=== PATIENT | female | born 1945 | race Asian ===

== ENCOUNTER 2019-02-15 06:45 | Inpatient (IN) | payer MEDICARE, BC ==
[~2019-02-15] VITALS: Ht 160 cm; Wt 69.1 kg
[2019-02-15 06:50] VITALS: BP 161/98
--- NOTE | 2019-02-15 06:50 | NUR ---
ED Nurse Note: SANDRINE GARCIA RA 30 FROM HOME C/O MECHANICAL SLIP AND FALL X [id number]. PT STATES SHE WAS RUNNING UP THE STAIRS AND FELL. PT DENIES LOC, DENIES HEAD TRAUMA. PAIN PERSISTS ON LEFT LOWER BACK. BILATERAL LOWER EXTREMITIES MOBILE
--- NOTE | 2019-02-15 06:56 | Emergency Room Report ---
History of Present Illness General Chief Complaint: Multiple Trauma/Fall Source: Patient Present Illness HPI Disclaimer: Please note that this report is being documented using DRAGON technology. This can lead to erroneous entry secondary to incorrect interpretation by the dictating instrument. HPI: This is 73-year-old female with no reported medical history presenting for evaluation of low back pain after a fall. She was rushing up the stairs and slipped on the last top stair falling forward and onto her left side. She is complaining of pain in the lower back and states she was unable to rise to her feet due to the back pain. She denies lower extremity weakness, numbness or tingling. Denies head injury, chest pain, shortness of breath. Her pain is localized around the left lower back in the lower midline. Denies prior history of trauma. Denied any preceding lightheadedness, chest pain, shortness of breath and states she fell because she was rushing. PMH: Denies PSH: Denies Allergies: Aspirin Social Hx: Denies drug, tobacco or alcohol use Allergies: Coded Allergies: ASPIRIN (Unverified Allergy, Unknown, 01/15/15) Nursing Documentation-PMH Past Medical History: No History, Except For Hx Cardiac Problems: Yes - Joshua PE Review of Systems All Other Systems: negative except mentioned in HPI Physical Exam Vital Signs Date Time Temp Pulse Resp B/P (MAP) Pulse Ox O2 Delivery O2 Flow Rate FiO2 02/15/19 06:46 97.9 98 15 156/80 (105) 96 Room Air General: Awake and alert, appears uncomfortable HEENT: Normocephalic, atraumatic. There are no scalp or face hematomas, lacerations or abrasions. No tenderness or soft tissue swelling over the facial bones. EOMI. PERRLA. No septal hematoma. Dentition is intact. No malocclusion Neck: Supple, trachea midline. Arrives without cervical collar Chest Wall: No tenderness, no deformity, no crepitus CV: RRR. S1 and S2 normal. No murmur appreciated Resp: Normal work of breathing. No cough, wheezing or crackles appreciated Abd: Soft, nontender, nondistended. Obese abdomen. No bruising Skin: Intact. No abrasions, laceration or rash over the exposed skin MSK: Normal tone and bulk. No obvious deformity. Moving all extremities. Able to straight leg raise bilaterally Neuro: Awake and alert. Mentating appropriately. Sensation is intact to light touch over the dermatomes of the upper and lower extremities Spine: There is no tenderness, step-off or deformity in the cervical, thoracic spine. There is midline lumbar tenderness and left-sided paraspinal tenderness without step-off or deformity. Medical Decision Making Diagnostic Impression: Primary Impression: Compression fracture of L3 vertebra Additional Impression: Hypomagnesemia ER Course 73-year-old female presents for evaluation of lower back pain after a mechanical fall. Will obtain a CT scan of the lumbar spine to rule out fracture and provide pain medication. Do not believe labs are indicated at this time. Laboratory Tests Test 02/15/19 07:32 White Blood Count 5.7 K/UL (4.8-10.8) Red Blood Count 4.41 M/UL (4.20-5.40) Hemoglobin 15.0 G/DL (12.0-16.0) Hematocrit 43.9 % (37.0-47.0) Mean Corpuscular Volume 100 FL (80-99) H Mean Corpuscular Hemoglobin 34.1 PG (27.0-31.0) H Mean Corpuscular Hemoglobin Concent 34.2 G/DL (32.0-36.0) Red Cell Distribution Width 11.2 % (11.6-14.8) L Platelet Count 175 K/UL (150-450) Mean Platelet Volume 8.4 FL (6.5-10.1) Neutrophils (%) (Auto) 67.9 % (45.0-75.0) Lymphocytes (%) (Auto) 25.7 % (20.0-45.0) Monocytes (%) (Auto) 4.6 % (1.0-10.0) Eosinophils (%) (Auto) 0.9 % (0.0-3.0) Basophils (%) (Auto) 1.0 % (0.0-2.0) Sodium Level 145 MMOL/L (136-145) Potassium Level 3.9 MMOL/L (3.5-5.1) Chloride Level 108 MMOL/L (98-107) H Carbon Dioxide Level 27 MMOL/L (21-32) Anion Gap 10 mmol/L (5-15) Blood Urea Nitrogen 17 mg/dL (7-18) Creatinine 0.8 MG/DL (0.55-1.30) Estimate Glomerular Filtration Rate mL/min (>60) Glucose Level 140 MG/DL (74-106) H Calcium Level 8.9 MG/DL (8.5-10.1) Phosphorus Level 2.5 MG/DL (2.5-4.9) Magnesium Level 1.5 MG/DL (1.8-2.4) L Total Bilirubin 0.8 MG/DL (0.2-1.0) Aspartate Amino Transferase (AST) 34 U/L (15-37) Alanine Aminotransferase (ALT) 63 U/L (12-78) Alkaline Phosphatase 93 U/L (46-116) Total Protein 7.1 G/DL (6.4-8.2) Albumin 3.7 G/DL (3.4-5.0) Globulin 3.4 g/dL Albumin/Globulin Ratio 1.1 (1.0-2.7) Reevaluation Time: 07:34 Last Vital Signs Date Time Temp Pulse Resp B/P (MAP) Pulse Ox O2 Delivery O2 Flow Rate FiO2 02/15/19 06:46 97.9 98 15 156/80 (105) 96 Room Air Reevaluation Impression CT shows a compression fraction at L3 without significant displacement or retropulsion. Attempted to ambulate the patient however she was complaining of unbearable pain, inability to bear weight. She lives at home with her daughter but her house has a lot of stairs and she lives in the top floor. She will be admitted for pain control and orthopedic evaluation. Disposition: ADMITTED INPATIENT Condition: Serious Scripts No Active Prescriptions or Reported Meds Scot Dillon MD Feb 15, 2019 06:56
[2019-02-15] MEDS ORDERED: Ketorolac 30mg Inj IM ONE (07:00)
--- NOTE | 2019-02-15 07:02 | NUR ---
ED Nurse Note: PT WENT TO CT
--- NOTE | 2019-02-15 07:10 | NUR ---
ED Nurse Note: Patient came back from CT in stable condition. Patient is alert awake x4 breathing unlabored and even. patient states her pain is not bothering her unless she moves. RN assisted patient to get out of bed, patient reports that she is unable to at this time. Notified Dr. Dillon.
--- NOTE | 2019-02-15 07:39 | Diagnostic Imaging Report ---
Indications: Low back pain after a fall Technique: Spiral acquisitions obtained through the lumbar spine. Multiplanar reconstructions were generated. No IV contrast utilized. Total dose length product 565.24 mGycm. CTDIvol(s) 15.9 mGy. Dose reduction achieved using automated exposure control Comparison: Findings: There is slight (under 20%) loss of height of the L3 vertebral body both anteriorly and posteriorly and primarily involving the inferior aspect of the vertebral body.. An acute fracture line is seen running through the anterior corner. There is slight posterior retropulsion. The remaining vertebral body heights are preserved. No other acute fractures. The bony alignment is normal. The upper sacrum is intact. The posterior retropulsion of the L3 fracture may result in slight compromise of the left lateral recess, although this is doubtful. Elsewhere, no significant disc bulge or protrusion, spinal stenosis, or neural foraminal narrowing. Nonspecific calcifications are seen within the pelvis. The included extra spinal soft tissues are otherwise unremarkable. Impression: Somewhat unusual compression fracture of L3, involving the inferior vertebral body. Presence of visible fracture line suggests acuity. There is mild retropulsion. Consider MRI for better characterization. No other acute abnormality demonstrated This agrees with the preliminary interpretation provided overnight by [facility] service. The CT scanner at [facility] is accredited by the [employer] and the scans are performed using protocols designed to limit radiation exposure to as low as reasonably achievable to attain images of sufficient resolution adequate for diagnostic evaluation.
[2019-02-15] MEDS ORDERED: Morphine Sulfate 2mg/ml Inj(IV/IM USE ONLY) IVP ONE (07:45)
[2019-02-15 07:59] LABS: EOSINOPHILS % (AUTO) 0.9 % (0.0-3.0); HEMATOCRIT 43.9 % (37.0-47.0); LYMPHOCYTES % (AUTO) 25.7 % (20.0-45.0); MEAN CORPUSCULAR VOLUME 100 FL (80-99); MONOCYTES % (AUTO) 4.6 % (1.0-10.0); NEUTROPHILS % (AUTO) 67.9 % (45.0-75.0); PLATELET COUNT 175 K/UL (150-450); RED BLOOD COUNT 4.41 M/UL (4.20-5.40); RED CELL DISTRIBUTION WIDTH 11.2 % (11.6-14.8); WHITE BLOOD COUNT 5.7 K/UL (4.8-10.8)
[2019-02-15 08:04] LABS: ANION GAP 10 mmol/L (5-15); BLOOD UREA NITROGEN 17 mg/dL (7-18); CALCIUM 8.9 MG/DL (8.5-10.1); CARBON DIOXIDE 27 MMOL/L (21-32); CHLORIDE 108 MMOL/L (98-107); CREATININE 0.8 MG/DL (0.55-1.30); POTASSIUM 3.9 MMOL/L (3.5-5.1); SODIUM 145 MMOL/L (136-145)
[2019-02-15 08:08] LABS: ALANINE AMINOTRANSFERASE 63 U/L (12-78); ALBUMIN 3.7 G/DL (3.4-5.0); ALBUMIN/GLOBULIN RATIO 1.1 (1.0-2.7); ALKALINE PHOSPHATASE 93 U/L (46-116); ASPARTATE AMINO TRANSFERASE 34 U/L (15-37); BILIRUBIN,TOTAL 0.8 MG/DL (0.2-1.0); PHOSPHORUS 2.5 MG/DL (2.5-4.9)
--- NOTE | 2019-02-15 08:19 | NUR ---
ED Nurse Note: Daughter at bedside, daughter to take all of patien'ts belongings except her glasses.
--- NOTE | 2019-02-15 10:19 | NUR ---
ED Nurse Note: called 4E, unable to give report at this time. will call back.
--- NOTE | 2019-02-15 10:31 | NUR ---
ED Nurse Note: Report given to Kate TAVERAS, endorsed all plan of care to Kate TAVERAS. patient is transferred to with all of her belongings in stable condition. daughter is taking her bag, only leaving her glasses and clothing.
--- NOTE | 2019-02-15 10:45 | NUR ---
NURSE NOTES: Patient received into room 416 bed -1, from ER by transported by katiuska,patient is alert and oriented,respirations unlabored.IV magnesium infusing ,started in ER,will monitor.. patient able to move bilateral lower extremities,no complaint of numbness or tingling to bilateral legs or feet.No complaint of pain at this time.Patient daughter at bedside has patient Purse.No cellphone noted,patient state cell phone at home.patient has glasses at bedside.Bed alarm implemented for safety ,call light within reach.
[2019-02-15] MEDS ORDERED: Milk of Magnesia 30ml Ud ORAL PRN (11:30)
[2019-02-15 12:00] VITALS: BP 128/79
[2019-02-15] MEDS: Docusate 100mg cap ORAL SCH ×2 (13:16→18:35)
[2019-02-15] MEDS: Heparin 5000 units/ml inj SUBQ SCH ×2 (13:17→21:23)
[2019-02-15] MEDS: Morphine Sulfate 2mg/ml Inj(IV/IM USE ONLY) IVP PRN ×2 (14:17→21:24)
--- NOTE | 2019-02-15 16:00 | History and Physical Report ---
DATE OF ADMISSION: 02/15/2019 CHIEF COMPLAINT: Fall, possible syncopal episode. HISTORY OF PRESENT ILLNESS: The patient is a pleasant 73-year-old female. She has a prior history of pulmonary embolism diagnosed in 2014. She completed all of her treatment for that. She apparently was in her home when she felt dizzy and then fell. She does not believe that she had a syncopal episode, but she landed on her back and had severe pain. She was unable to stand or get up and was brought by family to the emergency room. On evaluation there, a CAT scan showed a L3 compression fracture. Because of intractable pain and inability to ambulate, the patient is now admitted for further evaluation and care. PAST MEDICAL HISTORY: As above. PAST SURGICAL HISTORY: None. CURRENT MEDICATIONS: Reconciled and reviewed. ALLERGIES: None. FAMILY HISTORY: None. SOCIAL HISTORY: Negative for tobacco, ethanol, or drugs. REVIEW OF SYSTEMS: GENERAL: No fever or chills. HEENT: No headaches or visual changes. CARDIOPULMONARY: No chest pain or shortness of breath. GASTROINTESTINAL: No nausea or vomiting. GENITOURINARY: No urgency or frequency. MUSCULOSKELETAL: Positive lower back pain. NEUROLOGIC: No evidence of seizures. PHYSICAL EXAMINATION: VITAL SIGNS: Temperature 98 degrees, pulse 75, respirations 22, and blood pressure 161/98. GENERAL: The patient is well developed, in no apparent distress. Alert and oriented x4. NECK: Supple. HEART: Regular rate and rhythm. LUNGS: Clear. ABDOMEN: Soft, nontender, and nondistended. EXTREMITIES: Without clubbing, cyanosis. NEUROLOGIC: Motor strength is 5/5 bilaterally. Sensation intact bilaterally. Reflexes 2+. LABORATORY DATA: White count 6, hemoglobin 15, and platelets 175,000. CMP was unremarkable. Magnesium level is 1.5. CT shows a L3 compression fracture. ASSESSMENT: This is a pleasant female. She has a prior history of pulmonary embolism, admitted with mechanical fall versus a possible syncopal episode and now she has a L3 compression fracture with severe intractable pain. PLAN: 1. MRI of the spine. 2. IV pain medications as needed. 3. We will consider spine evaluation based on MRI results. 4. PT, OT evaluations. 5. The patient has been started on DVT prophylaxis. 6. Cardiology evaluation will be obtained to rule out a cardiac etiology for the patient's near syncopal episode. 7. The patient's magnesium will be replaced. Myron Vieira M.D. DR: IVY JOB#: [id number] CC:
--- NOTE | 2019-02-15 16:39 | Diagnostic Imaging Report ---
Indication: Low back pain status post fall Technique: Sagittal T1 and T2 fast spin echo, sagittal STIR, axial T1 and T2 fast spin-echo images of the lumbar spine Comparison: Reference made to CT scan earlier the same day Findings: There is slight loss of height of the L3 vertebral body, less than 20%, as well as irregularity of the anterior and posterior urbina. Decreased T1 and increased STIR signal is seen throughout much of the L3 vertebral body, particularly inferiorly. There is minimal if any posterior retropulsion. The remainder of the vertebral marrow signal is normal. The remaining vertebral body heights are preserved. The disc spaces are preserved. Conus medullaris terminates at the L2 level No significant disc bulge or protrusion, spinal stenosis, or neural foraminal stenosis. The included extraspinal soft tissues are remarkable for the presence of a small cyst in the right kidney Impression: Inferior compression fracture of the L3 vertebral body, also described on recent CT scan. Presence of marrow edema indicates that this is acute or subacute. No other acute or significant abnormality demonstrated Incidental finding right renal cyst
--- NOTE | 2019-02-15 18:00 | NUR ---
NURSE NOTES: Using bed whitman,voiding without difficulty.Skin care given.call light within reach.
--- NOTE | 2019-02-15 19:40 | NUR ---
HAND-OFF: Report given to Brissa TAVERAS.
[2019-02-15 20:00] VITALS: BP 128/79
--- NOTE | 2019-02-15 20:45 | NUR ---
NURSE NOTES: RECIEVED PT. IN BED ALERT AND ORIENTED W/ FAMILY @ BEDSIDE VISITING,AFEBRILE V/S STABLE C/O PAIN ON HER BACK REPOSITIONED FOR COMFORT.WILL CONTINUE W/ PLAN OF CARE.
[2019-02-16] VITALS: BP 120/93
--- NOTE | 2019-02-16 03:00 | Consultation ---
DATE OF CONSULTATION: 02/15/2019 CARDIOLOGY CONSULTATION CONSULTING PHYSICIAN: Ivan Porter M.D. REQUESTING PHYSICIAN: Myron Vieira M.D. REASON FOR CONSULTATION: Near syncope with fall. HISTORY OF PRESENT ILLNESS: This is a 73-year-old female. She felt dizzy, lightheaded, and fell today. She does not think she passed out but could not be sure. She landed on her back and had severe pain at that time and was unable to get up. She was brought into the hospital by family members and seen in the emergency room. She remains with severe intractable pain and inability to ambulate. Imaging studies in the emergency room confirmed an L3 compression fracture. I have been asked to assist with cardiovascular evaluation. PAST MEDICAL HISTORY: History of pulmonary embolism. ALLERGIES: None. MEDICATIONS: Reviewed and reconciled. FAMILY HISTORY: Noncontributory. SOCIAL HISTORY: Negative for smoking, alcohol, or substance abuse. REVIEW OF SYSTEMS: She has no fevers or chills. No recent upper respiratory infection. No nausea, vomiting, or abdominal pain. No headache or loss of vision. No history of myocardial infarction. No diabetes or thyroid disorder. She is not presently on anticoagulants. PHYSICAL EXAMINATION: VITAL SIGNS: Blood pressure 155/80, pulse 98, respiratory rate 15, afebrile. GENERAL: Moderately obese. HEENT: Conjunctivae are pink. Oropharynx clear. No hematomas. No lacerations. NECK: Supple. Jugular venous pressure normal. LUNGS: Clear. CARDIAC: Regular rhythm and rate. Normal S1 and S2 with no murmur. ABDOMEN: Soft and nontender. EXTREMITIES: No clubbing, cyanosis, no edema. NEUROLOGIC: There is paraspinal tenderness in the lumbar region left greater than right. Strength is symmetric in the lower extremities. There are no abnormal reflexes noted. LABORATORY AND DIAGNOSTIC DATA: White count 5.7, hemoglobin 15. Potassium 3.9. Sodium 145, bicarb 27, BUN 17, creatinine 0.8. Magnesium 1.5. Albumin 3.7. CT scan revealed an L3 compression fracture. IMPRESSION: 1. Possible syncopal episode. 2. Acute compression fracture due to fall . 3. Hypomagnesemia. PLAN: 1. Hydration. 2. IV magnesium replacement. 3. Pain control. 4. Further imaging of the spine per primary care physician. 5. EKG and echocardiogram to assess for structural heart disease. 6. Further cardiac workup will depend on clinical parameter and above studies. 7. Orthostatic blood pressure monitoring will be obtained as well. Ivan Porter M.D. DR: Fatemeh JOB#: [id number] CC:
[2019-02-16 04:00] VITALS: BP 126/92
[2019-02-16 06:55] LABS: BASOPHILS % (AUTO) 0.9 % (0.0-2.0); EOSINOPHILS % (AUTO) 0.7 % (0.0-3.0); HEMATOCRIT 44.8 % (37.0-47.0); HEMOGLOBIN 15.1 G/DL (12.0-16.0); LYMPHOCYTES % (AUTO) 27.4 % (20.0-45.0); MEAN CORPUSCULAR VOLUME 101 FL (80-99); MONOCYTES % (AUTO) 5.4 % (1.0-10.0); NEUTROPHILS % (AUTO) 65.6 % (45.0-75.0); PLATELET COUNT 159 K/UL (150-450); RED BLOOD COUNT 4.45 M/UL (4.20-5.40); RED CELL DISTRIBUTION WIDTH 11.3 % (11.6-14.8); WHITE BLOOD COUNT 5.2 K/UL (4.8-10.8)
[2019-02-16 07:14] LABS: ALANINE AMINOTRANSFERASE 46 U/L (12-78); ALBUMIN 3.5 G/DL (3.4-5.0); ALBUMIN/GLOBULIN RATIO 1.1 (1.0-2.7); ALKALINE PHOSPHATASE 83 U/L (46-116); ANION GAP 10 mmol/L (5-15); ASPARTATE AMINO TRANSFERASE 25 U/L (15-37); BLOOD UREA NITROGEN 11 mg/dL (7-18); CALCIUM 8.7 MG/DL (8.5-10.1); CARBON DIOXIDE 25 MMOL/L (21-32); CHLORIDE 110 MMOL/L (98-107); CREATININE 0.7 MG/DL (0.55-1.30); POTASSIUM 3.8 MMOL/L (3.5-5.1); SODIUM 145 MMOL/L (136-145)
[2019-02-16 07:15] LABS: BILIRUBIN,DIRECT 0.2 MG/DL (0.0-0.3)
--- NOTE | 2019-02-16 07:21 | NUR ---
HAND-OFF: Report given to BRENDA TAVERAS.
--- NOTE | 2019-02-16 07:50 | NUR ---
NURSE NOTES: Patient alert and oriented,respirations unlabored.patient eating breakfast,complaint of pain will mrdicate as ordered.bed alarm is on ,call light within reach.
[2019-02-16 08:00] VITALS: BP 140/74
[2019-02-16] MEDS: Docusate 100mg cap ORAL SCH ×2 (08:21→19:07)
[2019-02-16] MEDS: Heparin 5000 units/ml inj SUBQ SCH ×2 (08:31→21:24)
[2019-02-16] MEDS: HYDROcodone/Acetamin 10/325 tab ORAL PRN ×3 (08:36→21:25)
--- NOTE | 2019-02-16 09:03 | General Progress Note ---
Assessment/Plan Problem List: (1) Chest pain ICD Codes: R07.9 - Chest pain, unspecified SNOMED: 72912716 (2) Hypomagnesemia ICD Codes: E83.42 - Hypomagnesemia SNOMED: 447686672 (3) Compression fracture of L3 vertebra ICD Codes: S32.030A - Wedge compression fracture of third lumbar vertebra, initial encounter for closed fracture SNOMED: 620009300 Status: stable Assessment/Plan: spine eval pending pain rx pt/ot Subjective ROS Limited/Unobtainable: No Constitutional: Reports: malaise, weakness HEENT: Reports: no symptoms Cardiovascular: Reports: no symptoms Respiratory: Reports: no symptoms Gastrointestinal/Abdominal: Reports: no symptoms Genitourinary: Reports: no symptoms Neurologic/Psychiatric: Reports: no symptoms Endocrine: Reports: no symptoms Hematologic/Lymphatic: Reports: no symptoms Allergies: Coded Allergies: ASPIRIN (Unverified Allergy, Unknown, 01/15/15) All Systems: reviewed and negative except above Subjective still with pain. last took iv morphine last night. no focal weakness or numbness. MRI noted Objective Last 24 Hour Vital Signs Date Time Temp Pulse Resp B/P (MAP) Pulse Ox O2 Delivery O2 Flow Rate FiO2 02/16/19 04:00 98.1 71 18 126/92 (103) 96 02/16/19 00:00 98.0 74 19 120/93 (102) 95 02/15/19 21:54 98.2 02/15/19 21:00 Room Air 02/15/19 20:00 99.6 72 20 128/79 (95) 92 02/15/19 12:00 98.2 73 19 128/79 (95) 94 02/15/19 11:38 Room Air 02/15/19 10:30 97.9 75 22 161/98 98 Room Air Intake and Output 02/15/19 02/16/19 19:00 07:00 Output Total 350 ml Balance -350 ml Output Urine Total 350 ml # Voids 2 2 Laboratory Tests 02/16/19 05:10: White Blood Count 5.2, Red Blood Count 4.45, Hemoglobin 15.1, Hematocrit 44.8, Mean Corpuscular Volume 101H, Mean Corpuscular Hemoglobin 33.9H, Mean Corpuscular Hemoglobin Concent 33.7, Red Cell Distribution Width 11.3L, Platelet Count 159, Mean Platelet Volume 7.4, Neutrophils (%) (Auto) 65.6, Lymphocytes (%) (Auto) 27.4, Monocytes (%) (Auto) 5.4, Eosinophils (%) (Auto) 0.7, Basophils (%) (Auto) 0.9, Sodium Level 145, Potassium Level 3.8, Chloride Level 110H, Carbon Dioxide Level 25, Anion Gap 10, Blood Urea Nitrogen 11, Creatinine 0.7, Estimat Glomerular Filtration Rate , Glucose Level 104, Calcium Level 8.7, Magnesium Level 1.9, Total Bilirubin 2.0H, Direct Bilirubin 0.2, Aspartate Amino Transf (AST/SGOT) 25, Alanine Aminotransferase (ALT/SGPT) 46, Alkaline Phosphatase 83, Troponin I 0.002, Total Protein 6.7, Albumin 3.5, Globulin 3.2, Albumin/Globulin Ratio 1.1 Height (Feet): 5 Height (Inches): 3.00 Weight (Pounds): 153 General Appearance: WD/WN, alert Neck: supple Cardiovascular: regular rhythm Respiratory/Chest: lungs clear Abdomen: normal bowel sounds, non tender, soft, no organomegaly Edema: no edema noted Arm (L), no edema noted Arm (R), no edema noted Leg (L), no edema noted Leg (R), no edema noted Pedal (L), no edema noted Pedal (R), no edema noted Generalized Neurologic: no motor/sensory deficits Myron Vieira MD Feb 16, 2019 09:03
--- NOTE | 2019-02-16 10:14 | NUR ---
CASE MANAGEMENT:REVIEW 73 YR OLD FEMALE BIBA FROM HOME CC; RUNNING UP STAIRS AND FELL. UNABLE TO AMBULATE SI:L3 COMPRESSION FRACTURE HYPOMAGNESIUM 97.8 98 15 156/80 96% ON RA MAG-1.5 IS: IV TORADOL IV MORPHINE IV MAG SULFATE X1 CT SPINE : TO MED/SURG 4 EAST PLAN: PT EVAL
[2019-02-16 12:00] VITALS: BP 120/72
--- NOTE | 2019-02-16 15:17 | Consultation ---
Consult Note Consult Note full note dicated. L3 3 column fx, min displaced Assessment/Plan no surgical intervention now, but needs to be closely monitored. Needs custom TLSO Alex Bush MD Feb 16, 2019 15:17
[2019-02-16 16:00] VITALS: BP 114/63
--- NOTE | 2019-02-16 18:30 | NUR ---
NURSE NOTES: Patient resting no complaint of pain at this time.Log roll as ordered,Bed alarm on,call light within reach.
--- NOTE | 2019-02-16 19:45 | Consultation ---
DATE OF CONSULTATION: 02/16/2019 CONSULTING PHYSICIAN: Joshua Alvares M.D. HISTORY OF PRESENT ILLNESS: This is the first [facility] admission for this 73-year-old right-handed Syriac [place] woman who was admitted with a L3 fracture. I was asked to see the patient to evaluate her neurologic status. Yesterday, the patient was at home. She was running up stairs and tripped and fell. There was no loss of consciousness. She may have been dizzy at that time. She fell to the left side and had an immediate severe lower back pain. The paramedics were called and brought her to [facility]. CT scan of the lumbar spine revealed a L3 compression fracture, which was followed up by an MRI scan of the lumbar spine yesterday, which revealed no significant disk bulge or protrusion, spinal stenosis, or neuroforaminal stenosis, but there was an inferior compression fracture of the L3 vertebral body with some edema. There was no anemia; however, her MCV was elevated. Platelet count was normal. White count was normal. The chemistries were normal except for some mildly elevated glucose and chloride. The urinalysis was basically normal except for +1 leukocyte esterase. There is occasional bacteria noted. PT and PTT were normal. The patient had a 2D echocardiogram today, which was mildly abnormal. An EKG revealed left axis deviation, septal infarct, age indeterminate. There was evidence of some pulmonary hypertension on the echocardiogram. The patient was seen by Dr. Vieira. She was placed on heparin 5000 units subcutaneous and given hydrocodone/acetaminophen for pain and morphine for pain. I was asked to see the patient in neurologic consultation. The patient has a mild headache. There is no seizures or blackouts. Her memory is impaired. She denies any loss of smell or taste, diplopia, blurred vision, hearing loss, tinnitus. She denied dizzy spells to me. There is no dysarthria, dysphagia, or muscle weakness in her legs. There is no numbness or tingling or loss of bowel or bladder function. There is no family history of neurologic disease. PAST MEDICAL HISTORY/PAST MEDICAL ILLNESSES: Pulmonary embolism in 2015. The patient has sinusitis. HABITS: She does not drink, smoke, or take illicit drugs. SOCIAL HISTORY: She is , has 2 children, in good health. REVIEW OF SYSTEMS: Negative. There is no chest pain, palpitations, or shortness of breath with her episode. PHYSICAL EXAMINATION: GENERAL: She is a well developed, overweight to obese woman, lying in bed, in some distress because of back pain. VITAL SIGNS: Blood pressure is 120/72, respiratory rate 16, temperature is 99 degrees. HEENT: Intact except for poor dentition. NECK: There is no tenderness of her neck and her neck is supple. Carotids are +2. No bruits. LUNGS: Clear to auscultation. CARDIOVASCULAR: PMI is not felt. JVP was normal. The patient had a normal S1. S2 is physiologically split. There is no S3, S4, murmurs, or rubs. ABDOMEN: Obese. Bowel sounds intact and it is normal. No organomegaly or tenderness. BACK: Could not be tested. EXTREMITIES: Normal. NEUROLOGIC EXAMINATION: MENTAL STATUS: She was alert and awake. Judgment could not be tested. Affect is appropriate to her mood. Memory, past memory is intact to her date of and mother's maiden name. Immediate recall is 3/3 objects. Recent recall is 2/3 objects in 3 minutes. Intellect could not be tested. ORIENTATION: She knew it was 02/16/2019. Place, she knew she was in [facility]. She was oriented to person. Language functions were intact given that [place]se is her second language. She could spell world pretty much backwards and forwards. CRANIAL NERVE EXAMINATION: CRANIAL NERVE II: Visual urban were intact. CRANIAL NERVES III, IV, AND : Extraocular motility was full. Pupils were 3 mm, round, light reactive. CRANIAL NERVE V: Facial sensation was intact to fine touch. Pterygoid strength is 5/5. CRANIAL NERVE VII: Facial strength is 5/5. CRANIAL NERVE VIII: Auditory acuity is intact bilaterally. CRANIAL NERVES IX AND X: Gag is intact bilaterally. CRANIAL NERVES XI AND XII: Normal. MUSCLE EXAMINATION: Muscle bulk and tone are normal. Strength 5/5. Reflexes are +2 in the upper extremities, +2 at the knees, +1 at the ankles with downgoing toes on testing for Babinski response. COORDINATION: [id number], [id number]-jj-[id number] testing were intact. GAIT AND STATION: Could not be tested. SENSORY EXAMINATION: Pinprick, fine touch, proprioception were all intact. IMPRESSION: This patient has a L3 compression fracture without any obvious neurologic abnormality complications. Therefore, she will need to see an orthopedic surgeon. She will need pain management. PLAN: 1. I will speak to you about this case. 2. Orthopedic surgeon consultation. Thank you for this interesting case, Dr. Porter. Joshua MD Giorgio DR: NEGRA JOB#: [id number] CC: MUSA
[2019-02-16 20:00] VITALS: BP 132/75
--- NOTE | 2019-02-16 20:00 | NUR ---
NURSE NOTES: RECEIVED PATIENT LYING IN BED, AWAKE, ALERT/ORIENTED X4, VERBALLY RESPONSIVE, DENIES PAIN. NO SIGNS AND SYMPTOMS OF ACUTE CARDIO RESPIRATORY DISTRESS/SHORTNESS OF BREATH. L3 COMPRESSION FRACTURE, NO PENDING SURGERY/SCHEDULED FOR BRACE FITTING(MILLIE STAPLES) - PT HELD UNTIL AFTER FITTED WITH BRACE/STRICT BEDREST/LOG ROLL PROTOCOL, PATIENT AWARE. SIDE RAILS UP X3/BED IN LOWEST POSITION FOR SAFETY, ENCOURAGED PATIENT TO UTILIZE CALL LIGHT FOR ASSISTANCE. NAD.
--- NOTE | 2019-02-16 20:52 | NUR ---
HAND-OFF: Report given to Gina GARCIA.
--- NOTE | 2019-02-16 23:30 | Consultation ---
DATE OF CONSULTATION: 02/16/2019 SPINE SURGICAL CONSULTATION CONSULTING PHYSICIAN: Alex Chapman M.D. REFERRING PHYSICIAN: Ivan Porter M.D. REASON FOR CONSULTATION: Spinal fracture. HISTORY OF PRESENT ILLNESS: The patient is a 73-year-old woman who states that she was running up the stairs, and at the top of the landing, she fell. She did not fall down the stairs, but rather fell at the top of the landing. She is not sure if she fell straight forward while inside. Due to severe pain, she was brought into the hospital yesterday, and an MRI was obtained as well as the CT scan. An L3 compression fracture was identified and spine surgical consultation was recommended. The patient denies any numbness, tingling, or pain in the legs although she did have temporary numbness in her feet, which has since resolved. Due to severe pain, she is unable to stand or walk. The history was obtained through the patient's daughter. PAST MEDICAL HISTORY: Significant for pulmonary embolism. MEDICATIONS: Reviewed the reconciliation report. ALLERGIES: None. PHYSICAL EXAMINATION: The patient is an elderly woman, lying in a hospital bed, unable to mobilize her or log roll her due to pain. The back skin was not examined. Lower extremities were examined. She had full sensation throughout all dermatomes. Motor strength was intact and nonfocal as it relates to bilateral quadriceps, EHL, and gastroc soleus. Iliopsoas was difficult to assess due to pain. Gait was not assessed. Reflexes symmetric and nonfocal. DIAGNOSTIC STUDIES: CT scan was evaluated. There is an L3 fracture, involving both the anterior and middle columns. There appeared to also be a nondisplaced bilateral pedicle fracture, which is very poorly visualized, but appears to indeed be present. An MRI of the lumbar spine confirmed similar findings. DIAGNOSES: 1. Spinal fracture, unstable involving anterior and middle columns and possibly nondisplaced pedicle fractures. 2. History of pulmonary embolus. PLAN: At this point, I have had a detailed discussion with the patient's family with the patient as well with Dr. Vieira. This is an acute and unstable fracture. She should hold off on physical therapy and be log-rolled with spinal precautions. She needs to be fitted with a custom rigid TLSO brace. Strong consideration for rehab. She will need to be evaluated within two weeks for x-rays to assess further stability. Kyphoplasty is not indicated due to the fracture pattern. I did discuss alternatively operating at this time; however, based on her advanced age and comorbidity of prior pulmonary embolus, I would not recommend surgical intervention. I would recommend use of Miacalcin. I have also discussed with Dr. Vieira, consultation with Hematology to better understand why she had a DVT in the past and the risk of pulmonary embolus. Due to the protracted limited activity, consideration for anticoagulant versus IVC filter should be made. I will defer this to Hematology/Vascular. I will monitor the patient during the hospital stay. I do appreciate the opportunity to see and evaluate this patient. Alex Joe Chapman DR: GAMALIEL JOB#: [id number] CC: MUSA
--- NOTE | 2019-02-16 23:45 | Progress Note ---
DATE: 02/16/2019 CARDIOLOGY PROGRESS NOTE SUBJECTIVE: Pain is improved. MRI noted. Neurologic evaluation appreciated. OBJECTIVE: VITAL SIGNS: Blood pressure trend 126/92, pulse 71, respiratory rate 18, and afebrile. LUNGS: Clear. CARDIAC: Regular. Normal S1, S2. ABDOMEN: Soft. EXTREMITIES: No edema. IMPRESSION: 1. Non-syncopal fall. 2. Compression fracture of the third lumbar vertebra. 3. Hypomagnesemia. 4. Hx pulmonary embolism PLAN: 1. Monitor and replace electrolytes as needed including magnesium. 2. DVT prophylaxis. 3. Check orthostatics as mobilization ensues. 4. Fall precautions. 5. Check venous duplex; reassess for full anticoagulation. Ivan Porter M.D. DR: BRET JOB#: [id number] CC: MUSA
[2019-02-17] VITALS: BP 121/67
[2019-02-17 04:00] VITALS: BP 98/72
[2019-02-17] MEDS: HYDROcodone/Acetamin 10/325 tab ORAL PRN ×5 (05:42→20:48)
--- NOTE | 2019-02-17 06:51 | NUR ---
NURSE NOTES: RESTED WELL, NO SIGNIFICANT CHANGE OF CONDITION NOTED THROUGHOUT THE NIGHT. SAFETY MAINTAINED. NAD.
[2019-02-17 07:53] VITALS: BP 129/72
[2019-02-17] MEDS: Docusate 100mg cap ORAL SCH ×2 (08:15→17:02)
[2019-02-17] MEDS: Heparin 5000 units/ml inj SUBQ SCH ×2 (08:16→20:48)
--- NOTE | 2019-02-17 08:32 | NUR ---
DISCHARGE PLANNING BACK BRACE ORDER FAXED TO [facility] T: [phone] F: [phone] CALLED [facility] AND SPOKE WITH ED. PER ED HE HAS TO CONFIRM FINANCIAL RESPONSIBILITY WITH [facility]ENDO[facility]. ONCE FINANCIAL RESPONSIBILITY HAS BEEN CONFIRMED BRACE WILL BE DELIVERED NURSING TO FOLLOW UP WITH [facility] REGARDING DELIVERY TIME
--- NOTE | 2019-02-17 08:44 | NUR ---
NURSE NOTES: pt awake alert, oriented, no sob. no c/o pain. call light within reach. bed in lowest position, locked.
--- NOTE | 2019-02-17 08:50 | NUR ---
NURSE NOTES: received order from dr Briseno during his rounds venous duplex to r/o dvt , if dvt pt will need ivc filter per md, if no dvt, oral medication for dvt ppx is recommended.per md mae and rashawn brace has been notified for brace placement. and pt needs to have brace when out of bed
--- NOTE | 2019-02-17 08:58 | Orthopedic Spine Progress Note ---
Ortho Spine - Progress Note Subjective Symptoms: other - continues with back pain-- no leg symptoms Objective Vital Signs: Last 24 Hour Vital Signs Date Time Temp Pulse Resp B/P (MAP) Pulse Ox O2 Delivery O2 Flow Rate FiO2 02/17/19 07:53 97.9 71 18 129/72 (91) 94 02/17/19 06:12 97.9 02/17/19 04:00 97.9 71 18 98/72 (81) 94 02/17/19 00:00 98.1 74 18 121/67 (85) 94 02/16/19 21:00 Room Air 02/16/19 20:00 99.4 78 18 132/75 (94) 93 02/16/19 16:00 99.8 68 19 114/63 (80) 93 02/16/19 12:00 99.0 72 16 120/72 (88) 93 02/16/19 09:00 Room Air I&O: Intake and Output 02/16/19 02/17/19 18:59 06:59 Intake Total 450 ml 240 ml Balance 450 ml 240 ml Intake Oral 450 ml 240 ml # Voids 2 2 Neuro Status: normal Additional Comments: calf soft Assessment Post-op Diagnosis: L3 unstable fx Plan Plan: PT - start pt after brace, discharge plan - will need rehab placement Additional Comments: in light of prior dvt/pt, obtain baseline duplex today. If Duplex +, then will need IVC filter May start miacalcin if ok with primary team. Continue spine precautions until rigid TLSO brace is delivered Alex Chapman MD Feb 17, 2019 08:58
--- NOTE | 2019-02-17 09:22 | NUR ---
NURSE NOTES: rn called md office and spoke segun Jensen family wants dc dispo to be [facility] and miacalcin nasal spray that recommended by spine surgeon, awaiting md call back. per rom figueroa already knows about [facility]
--- NOTE | 2019-02-17 10:10 | NUR ---
P.T Note: late 02/16/2019 1545 P.T consult received however DR. Chapman advised to hold P.T evaluation until the TLSO brace is available. P.T will follow up.
--- NOTE | 2019-02-17 11:05 | NUR ---
DISCHARGE PLANNING CUSTOM BRACE HAS BEEN ORDERED FROM [facility] AND WILL BE DELIVERED TO HOSPITAL AT SOME POINT TODAY PATIENT HAS BEEN REFERRED TO [facility] T: [phone] F: [phone] CALLED [facility] AND SPOKE WITH TOÑO. EXPLAINED WE DO NOT HAVE ANY PT NOTES YET WE ARE WAITING FOR BACK BRACE TO BE DELIVERED NURSING..ONCE BRACE HAS BEEN DELIVERED AND PT HAS SEEN PATIENT PLEASE FAX PT NOTES TO ABOVE FAX NUMBER
[2019-02-17 12:00] VITALS: BP 119/79
--- NOTE | 2019-02-17 14:50 | General Progress Note ---
Assessment/Plan Problem List: (1) Chest pain ICD Codes: R07.9 - Chest pain, unspecified SNOMED: 40981755 (2) Hypomagnesemia ICD Codes: E83.42 - Hypomagnesemia SNOMED: 955991280 (3) Compression fracture of L3 vertebra ICD Codes: S32.030A - Wedge compression fracture of third lumbar vertebra, initial encounter for closed fracture SNOMED: 920016610 Status: stable Assessment/Plan: spine eval apprecaited custom brace per spine pain rx pt/ot Subjective ROS Limited/Unobtainable: No Constitutional: Reports: weakness HEENT: Reports: no symptoms Cardiovascular: Reports: no symptoms Respiratory: Reports: no symptoms Gastrointestinal/Abdominal: Reports: no symptoms Genitourinary: Reports: no symptoms Neurologic/Psychiatric: Reports: no symptoms Endocrine: Reports: no symptoms Hematologic/Lymphatic: Reports: no symptoms Allergies: Coded Allergies: ASPIRIN (Unverified Allergy, Unknown, 01/15/15) All Systems: reviewed and negative except above Subjective +back pain. spine appreciated. unstable L spine fracture. custom clamshell brace recommended. once fitted pt can go to [facility] with biweekly follow up with Objective Last 24 Hour Vital Signs Date Time Temp Pulse Resp B/P (MAP) Pulse Ox O2 Delivery O2 Flow Rate FiO2 02/17/19 12:17 97.9 02/17/19 12:00 97.9 86 18 119/79 (92) 94 02/17/19 08:56 Room Air 02/17/19 07:53 97.9 71 18 129/72 (91) 94 02/17/19 04:00 97.9 71 18 98/72 (81) 94 02/17/19 00:00 98.1 74 18 121/67 (85) 94 02/16/19 21:00 Room Air 02/16/19 20:00 99.4 78 18 132/75 (94) 93 02/16/19 16:00 99.8 68 19 114/63 (80) 93 Intake and Output 02/16/19 02/17/19 19:00 07:00 Intake Total 450 ml 240 ml Balance 450 ml 240 ml Intake Oral 450 ml 240 ml # Voids 2 2 Height (Feet): 5 Height (Inches): 3.00 Weight (Pounds): 152 Objective General Appearance: WD/WN, alert Neck: supple Cardiovascular: regular rhythm Respiratory/Chest: lungs clear Abdomen: normal bowel sounds, non tender, soft, no organomegaly Edema: no edema noted Arm (L), no edema noted Arm (R), no edema noted Leg (L), no edema noted Leg (R), no edema noted Pedal (L), no edema noted Pedal (R), no edema noted Generalized Neurologic: no motor/sensory deficits Myron Vieira MD Feb 17, 2019 14:50
--- NOTE | 2019-02-17 15:44 | NUR ---
DISCHARGE PLANNING UPDATE VENDOR CHANGED TO [facility] BY DIRECTOR OF [facility] T: [phone] F:[phone] BRACE TO ARRIVE BY 1700 ONCE WE HAVE PT NOTES THEY NEED TO BE FAXED TO [facility] T: [phone] F: [phone] THEY ALREADY HAVE ALL OF THE OTHER CLINICALS DR COFFEY WILL NOT FOLLOW PATIENT AT [facility]
[2019-02-17] MEDS: Calcium Carbonate 500mg w/Vit D 200iu tab ORAL SCH (15:55)
[2019-02-17] MEDS: Vitamin D 1000 IU Tab ORAL SCH (15:55)
[2019-02-17 16:22] VITALS: BP 131/70
--- NOTE | 2019-02-17 18:16 | NUR ---
CHARGE NURSE NOTE: Spoke with UMER Fuentes. According to her custom made brace will be delivered on Wednesday.
--- NOTE | 2019-02-17 19:19 | NUR ---
HAND-OFF: Report given to SID TAVERAS. PT C/O CONSTIPATION, DR COFFEY MADE AWARE, RECEIVED ORDER FOR MAG CITRATE X 1, ORDERED
[2019-02-17 20:00] VITALS: BP 129/77
[2019-02-17] MEDS ORDERED: Magnesium Citrate Liq Btl ORAL SCH (20:00)
[2019-02-18] VITALS: BP 119/74
--- NOTE | 2019-02-18 00:30 | Progress Note ---
DATE: 02/17/2019 CARDIOLOGY PROGRESS NOTE SUBJECTIVE: The patient has an unstable spine fracture and a specific brace is being fitted and requested. OBJECTIVE: VITAL SIGNS: Blood pressure 119/79, heart rate 86, respiratory rate 18, and afebrile. LUNGS: Clear. CARDIAC: Regular. Normal S1, S2 with no murmur. ABDOMEN: Soft. EXTREMITIES: No edema. LABORATORY DATA: No new laboratories today. Venous duplex scan was negative for DVT. IMPRESSION: 1. Mechanical fall. 2. Hypomagnesemia, status post repletion. 3. Compression fractures. 4. Hx of pulmonary embolism 5. Pulmonary hypertension secondary to above. PLAN: 1. Follow up laboratory studies. 2. Await back brace. 3. No acute indication for full anti-coagulation; needs DVT prophylaxis. Ivan Porter M.D. DR: Stephanie JOB#: [id number] CC: MUSA
[2019-02-18] MEDS: HYDROcodone/Acetamin 10/325 tab ORAL PRN ×4 (02:38→22:14)
[2019-02-18 04:00] VITALS: BP 104/57
--- NOTE | 2019-02-18 06:51 | NUR ---
NURSE NOTES: Received report from NITIN Vu. Patient A&Ox4. On room air, no signs of distress or labored breathing. IV intact, patent,. and saline locked. at the bedside. Bed in lowest position with call light in reach Will continue with plan of care.
[2019-02-18 07:19] LABS: EOSINOPHILS % (AUTO) 1.2 % (0.0-3.0); HEMOGLOBIN 16.1 G/DL (12.0-16.0); LYMPHOCYTES % (AUTO) 21.1 % (20.0-45.0); MEAN CORPUSCULAR VOLUME 100 FL (80-99); MONOCYTES % (AUTO) 8.3 % (1.0-10.0); NEUTROPHILS % (AUTO) 68.4 % (45.0-75.0); PLATELET COUNT 162 K/UL (150-450); RED BLOOD COUNT 4.69 M/UL (4.20-5.40); RED CELL DISTRIBUTION WIDTH 11.3 % (11.6-14.8); WHITE BLOOD COUNT 5.7 K/UL (4.8-10.8)
--- NOTE | 2019-02-18 07:38 | NUR ---
HAND-OFF: Report given to Rochelle Marsh RN.
--- NOTE | 2019-02-18 07:40 | NUR ---
NURSE NOTES: Received patient in bed, awake, alert and oriented x4. Able to make her needs known.Not in respiratory/cardiac distress, having breakfast without any difficulties. Patient is on mild pain ,will call nurse when she is done eating. Call light within reach, bed is in lowest position and locked. All personnel items within reach.Will continue plan of care.
[2019-02-18 07:44] LABS: ALANINE AMINOTRANSFERASE 46 U/L (12-78); ALBUMIN 3.5 G/DL (3.4-5.0); ALBUMIN/GLOBULIN RATIO 0.9 (1.0-2.7); ALKALINE PHOSPHATASE 93 U/L (46-116); ANION GAP 7 mmol/L (5-15); ASPARTATE AMINO TRANSFERASE 28 U/L (15-37); BILIRUBIN,TOTAL 1.8 MG/DL (0.2-1.0); BLOOD UREA NITROGEN 12 mg/dL (7-18); CALCIUM 9.5 MG/DL (8.5-10.1); CARBON DIOXIDE 29 MMOL/L (21-32); CHLORIDE 107 MMOL/L (98-107); CREATININE 0.6 MG/DL (0.55-1.30); POTASSIUM 4.5 MMOL/L (3.5-5.1); SODIUM 143 MMOL/L (136-145)
[2019-02-18 07:53] LABS: BILIRUBIN,DIRECT 0.3 MG/DL (0.0-0.3)
[2019-02-18 08:00] VITALS: BP 105/60
[2019-02-18] MEDS ORDERED: Fleet's Enema 133ml RECTAL PRN (08:15)
--- NOTE | 2019-02-18 08:23 | General Progress Note ---
Assessment/Plan Problem List: (1) Chest pain ICD Codes: R07.9 - Chest pain, unspecified SNOMED: 74253263 (2) Hypomagnesemia ICD Codes: E83.42 - Hypomagnesemia SNOMED: 116902245 (3) Compression fracture of L3 vertebra ICD Codes: S32.030A - Wedge compression fracture of third lumbar vertebra, initial encounter for closed fracture SNOMED: 375129726 Status: stable Assessment/Plan: bowel regime back brace wednesday dc planning once brace arrives Subjective ROS Limited/Unobtainable: No Constitutional: Reports: malaise, weakness HEENT: Reports: no symptoms Cardiovascular: Reports: no symptoms Respiratory: Reports: no symptoms Gastrointestinal/Abdominal: Reports: constipated Genitourinary: Reports: no symptoms Neurologic/Psychiatric: Reports: no symptoms Endocrine: Reports: no symptoms Hematologic/Lymphatic: Reports: no symptoms Allergies: Coded Allergies: ASPIRIN (Unverified Allergy, Unknown, 01/15/15) All Systems: reviewed and negative except above Subjective back pain. constipated. fitted for brace but brace will not arrive till wednesday Objective Last 24 Hour Vital Signs Date Time Temp Pulse Resp B/P (MAP) Pulse Ox O2 Delivery O2 Flow Rate FiO2 02/18/19 04:00 98.6 67 20 104/57 (73) 94 02/18/19 00:00 99.1 72 20 119/74 (89) 94 02/17/19 21:00 Room Air 02/17/19 20:00 99.3 76 18 129/77 (94) 02/17/19 20:00 99.3 76 18 129/77 (94) 94 02/17/19 16:34 97.9 02/17/19 16:22 97.9 80 18 131/70 (90) 94 02/17/19 12:00 97.9 86 18 119/79 (92) 94 02/17/19 08:56 Room Air Intake and Output 02/17/19 02/18/19 18:59 06:59 Intake Total 600 ml Balance 600 ml Intake Oral 600 ml # Voids 2 3 Laboratory Tests 02/18/19 06:15: White Blood Count 5.7, Red Blood Count 4.69, Hemoglobin 16.1H, Hematocrit 47.0, Mean Corpuscular Volume 100H, Mean Corpuscular Hemoglobin 34.4H, Mean Corpuscular Hemoglobin Concent 34.3, Red Cell Distribution Width 11.3L, Platelet Count 162, Mean Platelet Volume 8.1, Neutrophils (%) (Auto) 68.4, Lymphocytes (%) (Auto) 21.1, Monocytes (%) (Auto) 8.3, Eosinophils (%) (Auto) 1.2, Basophils (%) (Auto) 1.0 02/18/19 06:55: Sodium Level 143, Potassium Level 4.5, Chloride Level 107, Carbon Dioxide Level 29, Anion Gap 7, Blood Urea Nitrogen 12, Creatinine 0.6, Estimat Glomerular Filtration Rate , Glucose Level 114H, Calcium Level 9.5, Magnesium Level 2.2, Total Bilirubin 1.8H, Direct Bilirubin 0.3, Aspartate Amino Transf (AST/SGOT) 28 , Alanine Aminotransferase (ALT/SGPT) 46, Alkaline Phosphatase 93, Total Protein 7.3, Albumin 3.5, Globulin 3.8, Albumin/Globulin Ratio 0.9L, Thyroid Stimulating Hormone (TSH) 2.700 Height (Feet): 5 Height (Inches): 3.00 Weight (Pounds): 152 Objective General Appearance: WD/WN, alert Neck: supple Cardiovascular: regular rhythm Respiratory/Chest: lungs clear Abdomen: normal bowel sounds, non tender, soft, no organomegaly Edema: no edema noted Arm (L), no edema noted Arm (R), no edema noted Leg (L), no edema noted Leg (R), no edema noted Pedal (L), no edema noted Pedal (R), no edema noted Generalized Neurologic: no motor/sensory deficits Myron Vieira MD Feb 18, 2019 08:23
[2019-02-18] MEDS: Docusate 100mg cap ORAL SCH ×2 (08:29→17:19)
[2019-02-18] MEDS: Calcium Carbonate 500mg w/Vit D 200iu tab ORAL SCH ×2 (08:29→17:19)
[2019-02-18] MEDS: Vitamin D 1000 IU Tab ORAL SCH (08:29)
[2019-02-18] MEDS ORDERED: Fleet's Enema 133ml RECTAL SCH (08:30)
[2019-02-18] MEDS: Heparin 5000 units/ml inj SUBQ SCH ×2 (08:31→21:00)
--- NOTE | 2019-02-18 09:30 | NUR ---
NURSE NOTES: Patient refused heparin SQ. RN re-educated on medications and patient fully understood but patient refused x3 stating " I will take it @ night time." Rn explained the risks and benefits. Patient denies pain on calf or SOB.Will continue to monitor.
--- NOTE | 2019-02-18 10:30 | NUR ---
NURSE NOTES: Patient had large amount of brownish bowel movement after fleet enema. Proper skin care done. Log roll done when turning the patient.
[2019-02-18 12:00] VITALS: BP 116/62
--- NOTE | 2019-02-18 13:04 | NUR ---
DISCHARGE PLANNING: NOTE CM CONFIRMED WITH GIANNA @ [facility] THAT CUSTOM BRACE WILL BE DELIVERED ON WEDNESDAY BETWEEN [phone]. PRIMARY CM WILL F/U ON WEDNESDAY
--- NOTE | 2019-02-18 13:11 | Cardiology Report ---
APPROVED REPORT EKG Measurement Heart [id number] HI [id number] Normal sinus rhythm Left axis deviation Septal infarct, age undetermined Abnormal ECG
--- NOTE | 2019-02-18 13:55 | NUR ---
PT Note Custom TLSO brace will be delivered on Wednesday. Will hold PT till brace is available.
[2019-02-18 16:00] VITALS: BP 109/63
--- NOTE | 2019-02-18 19:42 | NUR ---
NURSE NOTES: Received report from NITIN Sterling. Patient a/a/o breathing unlabored without distress, discomfort, or sob on room air. Denies pain at this time. IV noted on the right antecubital intact, dry, and patent. Patient verbalize understanding of logroll and able to demonstrate with staff assist. Bed placed at the lowest with brakes and siderails up for safety. Call light placed within reach. Will continue to monitor and provide care as ordered.
[2019-02-18 20:00] VITALS: BP 109/66
--- NOTE | 2019-02-18 21:00 | NUR ---
NURSE NOTES: Patient and patient family member refused heparin scheduled today for 2100. Patient and patient's family member are well aware of the benefit and the risk and it was went over again at the bedside Will continue to monitor and provide care as ordered. .
--- NOTE | 2019-02-18 22:01 | NUR ---
NURSE NOTES: Spoke with Dr. Porter that venous duplex was done on the 17 of February. Informed the result posted on the imaging section. Given order to cancel the urgent venous duplex scheduled today. Also, informed Dr. Porter that patient and patient's family member refused heparin today and prefers SCDs to be placed at this time and Dr. Porter confirmed okay to place SCDs and aware of refusal to heparin. Will carry out the order as given and continue to monitor patient.
--- NOTE | 2019-02-18 23:00 | Progress Note ---
DATE: 02/18/2019 CARDIOLOGY PROGRESS NOTE The patient awaiting brace. Still with back pain. Echocardiogram reviewed. Pulmonary hypertension noted with no signs of primary cardiac disease; this is due to prior pulmonary emboli. Exam unchanged. Venous duplex for evaluation of possible recurring or chronic DVT's was negative. Will consider work-up for possible chronic pulmonary emboli, need to anti-coagulate. Ivan Porter M.D. DR: EILEEN JOB#: [id number] CC: MUSA
[2019-02-19] VITALS: BP 114/71
[2019-02-19 04:00] VITALS: BP 104/58
--- NOTE | 2019-02-19 07:49 | NUR ---
HAND-OFF: Report given to NITIN Salmeron and NITIN Sterling.
--- NOTE | 2019-02-19 07:50 | NUR ---
NURSE NOTES: Received patient in bed, awake, alert and oriented x4. Able to make her needs known.Not in respiratory/cardiac distress, having breakfast without any difficulties. @ nurses helped the patient when turning and log roll done. Call light within reach, bed is in lowest position and locked. All personnel items within reach.Will continue plan of care.
--- NOTE | 2019-02-19 07:50 | NUR ---
NURSE NOTES: Received Patient in bed asleep. No SOB or cardiac distress. IV access intact, no s/s of infiltration. Call light kept within reach. Bed kept flat and in lowest position. Will continue plan of care.
[2019-02-19 08:00] VITALS: BP 128/71
[2019-02-19] MEDS: Vitamin D 1000 IU Tab ORAL SCH (08:12)
[2019-02-19] MEDS: Calcium Carbonate 500mg w/Vit D 200iu tab ORAL SCH ×2 (08:12→17:29)
[2019-02-19] MEDS: HYDROcodone/Acetamin 10/325 tab ORAL PRN ×3 (08:12→21:52)
[2019-02-19] MEDS: Docusate 100mg cap ORAL SCH ×2 (08:12→17:29)
--- NOTE | 2019-02-19 08:20 | NUR ---
NURSE NOTES: Patient noted with skin irritation and itching on right lateral upper leg area. Patient scratched it but no skin break but redness and scratch romo. RN made Dr. Vieira aware and received order to apply hydrocortisone 1% PRN on affected area. Proper skin care done.Will continue to monitor.
[2019-02-19] MEDS: Heparin 5000 units/ml inj SUBQ SCH ×2 (08:22→21:00)
--- NOTE | 2019-02-19 10:39 | General Progress Note ---
Assessment/Plan Problem List: (1) Chest pain ICD Codes: R07.9 - Chest pain, unspecified SNOMED: 04326326 (2) Hypomagnesemia ICD Codes: E83.42 - Hypomagnesemia SNOMED: 947990839 (3) Compression fracture of L3 vertebra ICD Codes: S32.030A - Wedge compression fracture of third lumbar vertebra, initial encounter for closed fracture SNOMED: 751451200 Status: stable Assessment/Plan: bowel regime back brace wednesday dc planning once brace arrives Subjective ROS Limited/Unobtainable: No Constitutional: Reports: weakness HEENT: Reports: no symptoms Cardiovascular: Reports: no symptoms Respiratory: Reports: no symptoms Gastrointestinal/Abdominal: Reports: constipated Genitourinary: Reports: no symptoms Neurologic/Psychiatric: Reports: no symptoms Endocrine: Reports: no symptoms Hematologic/Lymphatic: Reports: no symptoms Allergies: Coded Allergies: ASPIRIN (Unverified Allergy, Unknown, 01/15/15) All Systems: reviewed and negative except above Subjective back pain. had bowel movement. fitted for brace but brace will not arrive till wednesday Objective Last 24 Hour Vital Signs Date Time Temp Pulse Resp B/P (MAP) Pulse Ox O2 Delivery O2 Flow Rate FiO2 02/19/19 04:00 98.6 69 18 104/58 (73) 100 02/19/19 00:00 98.7 69 18 114/71 (85) 94 02/18/19 21:00 Room Air 02/18/19 20:00 97.6 64 20 109/66 (80) 94 02/18/19 16:00 98.5 73 18 109/63 (78) 98 02/18/19 12:00 97.8 70 18 116/62 (80) 98 Intake and Output 02/18/19 02/19/19 19:00 07:00 Intake Total 600 ml 360 ml Balance 600 ml 360 ml Intake Oral 360 ml Other 600 ml # Voids 3 # Bowel Movements 1 Height (Feet): 5 Height (Inches): 3.00 Weight (Pounds): 152 Objective General Appearance: WD/WN, alert Neck: supple Cardiovascular: regular rhythm Respiratory/Chest: lungs clear Abdomen: normal bowel sounds, non tender, soft, no organomegaly Edema: no edema noted Arm (L), no edema noted Arm (R), no edema noted Leg (L), no edema noted Leg (R), no edema noted Pedal (L), no edema noted Pedal (R), no edema noted Generalized Neurologic: no motor/sensory deficits Myron Vieira MD Feb 19, 2019 10:39
[2019-02-19 12:00] VITALS: BP 139/79
[2019-02-19] MEDS ORDERED: Hydrocortisone 1% Cr 15gm TOPIC PRN (15:00)
[2019-02-19 16:00] VITALS: BP 125/75
--- NOTE | 2019-02-19 17:30 | NUR ---
NURSE NOTES: Patient has an order for Chest x-ray 2V. Per radiology,patient's bedrest status,2V is unable to be done for the patient. Dr. Porter was paged to clarify the order. Awaiting for return call.
--- NOTE | 2019-02-19 19:43 | NUR ---
NURSE NOTES: Received report from NITIN Sterling. Patient a/a/o breathing unlabored without distress, discomfort, or sob on room air. Denies pain at this time. IV noted on the right antecubital intact, dry, and clean. Bed placed at the lowest with brake, alarm, and siderails up for safety. SCDs at the bedside but patient refused to wear at this time and will continue to encourage wearing during shift. Call light placed within reach. Will continue to monitor and provide care as ordered.
--- NOTE | 2019-02-19 19:45 | Progress Note ---
DATE: 02/19/2019 CARDIOLOGY PROGRESS NOTE SUBJECTIVE: Pain is slightly better controlled. Constipation is improving. OBJECTIVE: VITAL SIGNS: Blood pressure 104/58, pulse 69, respirations 18. LUNGS: Clear. CARDIAC: Regular. Normal S1, S2 with a fourth heart sound. ABDOMEN: Soft. EXTREMITIES: No edema. Venous duplex negative for DVT. IMPRESSION: 1. Compression fracture due to mechanical fall. 2. History of pulmonary embolus. 3. Pulmonary hypertension secondary to above. 4. Hypomagnesemia, status post replacement therapy. PLAN: 1. Pain control. 2. Await brace for mobilization. 3. Check chest x-ray. 4. Aggressive DVT prophylaxis. 5. The patient remains off anticoagulation at this time. Ivan Porter M.D. DR: RITA JOB#: [id number] CC:
[2019-02-19 20:00] VITALS: BP 122/71
--- NOTE | 2019-02-19 21:21 | NUR ---
NURSE NOTES: patient refused heparin saying she received it in the morning and she wants SCDs on for the night. Explained benefit and the risk and patient verbalized understanding. Continues to prefer the SCDs to be placed.
[2019-02-20] VITALS: BP 127/61
[2019-02-20 04:00] VITALS: BP 125/66
[2019-02-20] MEDS: HYDROcodone/Acetamin 10/325 tab ORAL PRN ×2 (04:28→14:33)
--- NOTE | 2019-02-20 07:23 | NUR ---
HAND-OFF: Report given to NITIN Land.
--- NOTE | 2019-02-20 07:44 | NUR ---
NURSE NOTES: Received report from NITIN Grayson. Pt is sleeping in bed. No distress noted. Bed is in lowest position, side rails up X2, and call light is within reach. WIll continue to monitor.
[2019-02-20] MEDS ORDERED: CALCITONIN-SAL3.7 ML NASAL (07:51)
[2019-02-20] MEDS ORDERED: VITAMIN D1000 UNI1 ORAL (07:51)
[2019-02-20] MEDS ORDERED: FOSAMAX70 MG ORAL (07:51)
[2019-02-20] MEDS ORDERED: OSCAL D500 MG ORAL (07:51)
[2019-02-20 08:00] VITALS: BP 117/59
[2019-02-20] MEDS: Vitamin D 1000 IU Tab ORAL SCH (08:17)
[2019-02-20] MEDS: Calcium Carbonate 500mg w/Vit D 200iu tab ORAL SCH (08:17)
[2019-02-20] MEDS: Docusate 100mg cap ORAL SCH (08:18)
[2019-02-20] MEDS: Heparin 5000 units/ml inj SUBQ SCH (08:19)
--- NOTE | 2019-02-20 08:48 | Cardiology Report ---
APPROVED REPORT EXAM: Two-dimensional and M-mode echocardiogram with Doppler and color Doppler. INDICATION [facility] M-Mode DIMENSIONS IVSd1.0 (0.7-1.1cm)Left Atrium (MM)3.2 (1.6-4.0cm) LVDd4.8 (3.5-5.6cm)Aortic Root2.6 (2.0-3.7cm) PWd1.1 (0.7-1.1cm)Aortic Cusp Exc.1.8 (1.5-2.0cm) IVSs1.7 cm LVDs2.6 (2.5-4.0cm) PWs1.7 cm Technically difficult study due to poor acoustical windows. Normal left ventricular chamber size, systolic function and wall motion to extent visualized. Left ventricular ejection fraction estimated to be 55-60 %. No evidence of left ventricular hypertrophy . No evidence of pericardial effusion. All other cardiac chamber sizes are within normal limits. Focal aortic valve sclerosis with adequate cusp excursion. Thickened mitral valve leaflets with normal excursion. Mitral annulus and aortic root calcification. Normal pulmonic valve structure. Normal tricuspid valve structure. IVC at normal size with physiologic collapse. A color flow and spectral Doppler study was performed and revealed: No aortic regurgitation.. Trace mitral regurgitation. Mitral diastolic velocities suggest reduced left ventricular relaxation c/w mild LV diastolic dysfunction (Grade I ). Trace tricuspid regurgitation. Tricuspid systolic velocities suggests peak right ventricular systolic pressure of 55 mmHg,consistent with moderate pulmonary hypertension.
--- NOTE | 2019-02-20 11:47 | Diagnostic Imaging Report ---
Indication: Dyspnea Comparison: 01/15/2015 A single view chest radiograph was obtained. Findings: No definite infiltrate or pulmonary vascular congestion identified. The heart is enlarged. The aorta is mildly enlarged consistent with atherosclerotic vascular disease. The bones are osteopenic. Impression: No acute disease
[2019-02-20 12:00] VITALS: BP 121/66
--- NOTE | 2019-02-20 14:17 | NUR ---
P.T Note: TLSO brace arrived. Pt already wearing TLSO brace when P.T arrived in the room with daughter and present. . RN offered pain medication prior to P.T evaluation however patient declined stated that she pain is tolerable and will participate w/o pain meds. P.T evaluation was completed and tx initiated. Please refer to P.T evaluation for current functional status. Pt presented pain in the lower back aggravated by movement initiation , generalized weakness and deconditioned stated. Pt also expressed fear of mobility since she has not been getting up for few days due to pt was not cleared for OOB until arrival of the TLSO brace and since she was anticipating pain. Pt currently require extended time and MOD A X 1 for turning/rolling and MAX A X 1 for supine to/from sitting using log roll technique. Pt require MOD/MAX A X 1 to complete sit to/from standing, bed to/from chair transitions and MOD A X 1 for sit to/from standing transitions using the FWW. Pt was able to stand using the FWW but has difficulty transferring BUE from chair/bed rail to walker and vice versa. Pt was able to ambulate total of 10 ft using the FWW with MIN A X 1 with unsteady gait. Skilled P.T service is warranted to improve strength, endurance/activity tolerance and balance to increase her mobility independence and safety. Recommend ARU for further rehab intervention VS home P.T. Thank you for this referral.
--- NOTE | 2019-02-20 15:12 | NUR ---
DISCHARGE PLANNING FAXED UPDATED PROGRESS NOTES AND PT NOTES TO [facility] ATT: TERESA F: [phone] AWAIT ACCEPTANCE AND ASSIGNED ROOM NUMBER
--- NOTE | 2019-02-20 16:00 | NUR ---
DISCHARGE PLANNED PATIENT IS DISCHARGING TO [facility] ROOM 577A SKILLED T: [phone] FOR NURSE TO NURSE REPORT [facility] HAS BEEN ARRANGED FOR [address] [employer] IN AGREEMENT WITH DISCHARGE DISPOSITION
--- NOTE | 2019-02-20 17:31 | NUR ---
NURSE NOTES: Patient was transferred to [facility] ARU per MD orders. Pt is back brace. Patients daughter is at beside. Belongings accounted for. Belongings list signed and in chart. Pt stable at time of discharge. Pt stable at time of discharge.
--- NOTE | 2019-02-20 23:19 | Diagnostic Imaging Report ---
APPROVED REPORT CPT Code: 59468 Present Symptoms Comments: Back Injury and pain Past History Pulmonary Embolism BILATERAL: Imaging reveals a patent deep venous system bilaterally. There is no evidence of thrombus within the common femoral, superficial femoral, popliteal or tibial segments. The greater saphenous veins are within normal limits. Doppler indicates normal spontaneous flow within these segments.
--- NOTE | 2019-02-21 00:30 | Progress Note ---
DATE: 02/20/2019 CARDIOLOGY PROGRESS NOTE SUBJECTIVE: The patient has no chest pain or shortness of breath. Back pain is better. Her back brace was received and fitted today. OBJECTIVE: VITAL SIGNS: Blood pressure 117/59, pulse rate 64, respiratory rate 19, afebrile, room air oxygen 95% to 100%. LUNGS: Clear. CARDIAC: Regular. ABDOMEN: Soft. EXTREMITIES: No edema. LABORATORY AND DIAGNOSTIC DATA: Chest x-ray, one-view, no acute process. IMPRESSION: 1. Mechanical fall. 2. Compression fractures. 3. Distant history of pulmonary emboli. 4. Pulmonary hypertension. 5. Hypomagnesemia, corrected. PLAN: 1. Transfer to acute rehab. Back brace in place. 2. Monitor electrolytes and magnesium periodically. 3. Symptom-guided pain control. 4. No current role for anticoagulation, however, needs aggressive DVT prophylaxis. Ivan Porter M.D. DR: DAYAMI JOB#: [id number] CC:
--- NOTE | 2019-02-21 01:15 | Discharge Summary ---
DATE OF ADMISSION: 02/15/2019 DATE OF DISCHARGE: 02/20/2019 ADMISSION DIAGNOSES: 1. Mechanical fall. 2. L3 compression fracture. 3. History of DVT. DISCHARGE DIAGNOSES: 1. Mechanical fall. 2. L3 compression fracture. 3. History of DVT. HOSPITAL COURSE: The patient is a pleasant female. She has a prior history of DVT many years ago that was treated. She was admitted with mechanical fall. She had a CAT scan that showed an L3 compression fracture and an MRI that showed a unstable L3 compression fracture. She was seen by spine, who has recommended that the patient be fitted with a rigid TLSO brace. This is obtained. The patient will go home with aggressive outpatient therapy. She will see the spine surgeon every 2 weeks. The patient had a venous duplex that was negative. DISCHARGE MEDICATIONS: Please see discharge medication list for discharge medications. DIET: Regular diet. ACTIVITIES: Ad-claude. Myron Vieira M.D. DR: STEWART JOB#: [id number] CC:
== END 2019-02-20 17:25 | disposition short-term general hospital (02) | DRG 552 ==
LOC: EDBD 06:45 → EDUNIT# 06:45 → EMR 07:15 → 4E 08:07 → EDBEDREQ 09:45 → 4E 11:14
DX: S32.038A Other fracture of third lumbar vertebra, initial encounter for closed fracture (principal); W19.XXXA Unspecified fall, initial encounter; Y92.009 Unspecified place in unspecified non-institutional (private) residence as the place of occurrence of the external cause; E83.42 Hypomagnesemia; Z86.711 Personal history of pulmonary embolism; Z86.718 Personal history of other venous thrombosis and embolism; R55 Syncope and collapse; R07.9 Chest pain, unspecified; I27.20 Pulmonary hypertension, unspecified
CPT/HCPCS: 36415; 71045; 72131; 72148; 80053; 82248; 83735; 84100; 84443; 84484; 85025; 93005; 93306; 93970; 96365; 96372; 99285